=== PATIENT | female | born 1965 | race Caucasian/White ===

== ENCOUNTER 2024-10-09 16:30 | Emergency (ER) | payer MEDICAID ==
[~2024-10-09] VITALS: Ht 160 cm; Wt 88.4 kg
[2024-10-09 16:34] VITALS: TEMP 99.3; O2SAT 95
[2024-10-09] MEDS ORDERED: IBUP-2028 MT (19:46)
[2024-10-09] MEDS ORDERED: HYDR-4001 MT (19:46)
[2024-10-09] MEDS ORDERED: LIDO700A15 TP (19:46)
[2024-10-09] MEDS: HYDROCODONE/ACETAMINOPHEN 5/325MG TABLET PO ONE (20:24)
[2024-10-09] MEDS: KETOROLAC 30MG/ML VIAL IM ONE (20:24)
[2024-10-09] MEDS: LIDOCAINE 5% PATCH TOP SCH (20:25)
[2024-10-09 20:30] VITALS: BP 143/84; PULSE 71; RESP 18; O2SAT 98
== END 2024-10-09 20:32 | disposition home or self-care (01) ==
LOC: ER 16:30
DX: M48.56XA Collapsed vertebra, not elsewhere classified, lumbar region, initial encounter for fracture (principal); F17.200 Nicotine dependence, unspecified, uncomplicated
CPT/HCPCS: 73502; 72100; 96372; 99284; J1885; Z7610